=== PATIENT | male | born 1990 | race African-American/Black ===

== ENCOUNTER 2019-03-28 12:41 | Emergency (ER) | payer MEDICAID ==
[~2019-03-28] VITALS: Ht 177.8 cm; Wt 72.0 kg
[2019-03-28 12:45] VITALS: BP 132/78
== END 2019-03-28 12:45 | disposition left against medical advice (07) ==
LOC: ER 12:41 → EDBD 12:41 → ER 12:45
DX: Z53.21 Procedure and treatment not carried out due to patient leaving prior to being seen by health care provider (principal)